=== PATIENT | female | born 1985 ===

== ENCOUNTER 2017-10-21 05:23 | Inpatient (IN) | payer BC ==
[2017-10-21] MEDS ORDERED: HYDROcodone/Acetaminophen 5/325 mg Tablet PO PRN ×2 (05:34)
[2017-10-21] MEDS ORDERED: Diphenoxylate HCl/Atropine Tablet PO PRN ×2 (05:34)
[2017-10-21] MEDS ORDERED: Docusate 100 MG CAP PO PRN (05:34)
[2017-10-21] MEDS ORDERED: NS / Oxytocin 40 units/1000ml 1,000 ML IV PRN (05:34)
[2017-10-21] MEDS ORDERED: Misoprostol 200 MCG TAB PR PRN (05:34)
[2017-10-21] MEDS ORDERED: Butorphanol Tartrate 1 MG/ML VIAL SLOW IVP PRN (05:34)
[2017-10-21] MEDS ORDERED: Lidocaine 1% (PF) 30 ML VIAL SC PRN (05:34)
[2017-10-21] MEDS ORDERED: Ondansetron HCl/PF 4 MG/2 ML Vial IVP PRN ×3 (05:34→16:10)
[2017-10-21] MEDS ORDERED: Promethazine HCl 25 MG/ML VIAL IM PRN ×2 (05:34→10:56)
[2017-10-21] MEDS ORDERED: Acetaminophen 500 MG TAB PO PRN (05:34)
[2017-10-21] MEDS ORDERED: NS w/ Oxytocin 10 units 500 ML IV SCH (05:34)
[2017-10-21] MEDS ORDERED: Ibuprofen 800 MG TAB PO PRN (05:34)
[2017-10-21] MEDS: Lactated Ringer's 1,000 ML IV SCH ×3 (06:05→11:22)
[2017-10-21 06:36] VITALS: BMI 45.9
[2017-10-21 06:38] LABS: Hemoglobin 10.7 g/dL (12.0-16.0); Mean Corpuscular HGB CONC 33.5 g/dL (32.0-36.0); Mean Corpuscular Hemoglobin 29.7 pg (27.0-31.0); Mean Corpuscular Volume 88.7 fL (78.0-98.0); Mean Platelet Volume 10.9 fL (7.4-10.4); Platelet Count 191 thou/uL (130-400); RBC Distribution Width 13.2 % (11.5-14.5); Red Blood Cell (RBC) Count 3.59 mill/uL (4.20-5.40); White Blood Cell (WBC) Count 9.4 thou/uL (4.8-10.8)
[2017-10-21 07:17] LABS: Syphilis Antibody Nonreactive (Nonreactive); Syphilis Antibody Index 0.03 S/CO (<1.00 Non-Reactive)
[2017-10-21 07:18] LABS: HBSAg Index 0.14 S/CO (0-0.99); Hep B Surf Ag Non-Reactive S/CO (NonReactive)
[2017-10-21] MEDS ORDERED: DISCONTINUE ALL PREVIOUS NARCOTICS FS SCH (09:45)
[2017-10-21] MEDS ORDERED: Bupivacaine 0.5% 20 ML, fentaNYL Citrate/PF 400 MCG in Sodium Chloride 0.9% 72 ML EPIDURAL SCH (09:45)
[2017-10-21] MEDS ORDERED: Acetaminophen 325 MG TAB PO PRN (10:56)
[2017-10-21] MEDS ORDERED: Eucerin (Mineral Oil/Petrolatum,White) 30 gm Jar TOP PRN (10:56)
[2017-10-21] MEDS ORDERED: ePHEDrine/0.9% NaCl/PF SYRINGE 50 mg/10 ml SLOW IVP PRN (10:56)
[2017-10-21] MEDS ORDERED: Naloxone HCl 0.4 mg/ml Vial IVP PRN ×2 (10:56)
[2017-10-21] MEDS ORDERED: Lactated Ringer's 500 ML IV PRN (10:56)
[2017-10-21] MEDS ORDERED: diphenhydrAMINE 50 MG/ML VIAL IVP PRN (10:56)
[2017-10-21] MEDS ORDERED: fentaNYL Citrate/PF 400 MCG, Bupivacaine 0.5% 20 ML in Sodium Chloride 0.9% 72 ML EPIDURAL SCH (11:00)
[2017-10-21] MEDS ORDERED: Communication Order-Pharmacy FS SCH (11:00)
[2017-10-21] MEDS ORDERED: Zolpidem Tartrate 5 MG TAB PO PRN (16:10)
[2017-10-21] MEDS ORDERED: Milk Of Magnesia 30 ML UDCUP PO PRN (16:10)
[2017-10-21] MEDS ORDERED: Acetaminophen/Codeine 30-300mg Tablet PO PRN (16:10)
[2017-10-21] MEDS ORDERED: Benzocaine/Menthol 20-0.5% 60 ML CAN TOP PRN (16:10)
[2017-10-21] MEDS ORDERED: Bisacodyl 10 MG SUPP PR PRN (16:10)
[2017-10-21] MEDS ORDERED: Adacel (T-DAP) 0.5 ML VIAL IM ONE (16:10)
[2017-10-21] MEDS ORDERED: Preparation H Ointment 28 GM TUBE PR PRN (16:10)
[2017-10-21] MEDS ORDERED: diphenhydrAMINE 25 MG CAP PO PRN (16:10)
[2017-10-21] MEDS ORDERED: Lanolin Ointment 7 GM TUBE TOP PRN (16:10)
[2017-10-21] MEDS ORDERED: NS / Oxytocin 40 units/1000ml 1,000 ML IV SCH (16:15)
[2017-10-21] MEDS: Ferrous Sulfate 325 MG TAB PO SCH (19:29)
[2017-10-21] MEDS: Ibuprofen 800 MG TAB PO SCH (19:38)
[2017-10-21] MEDS: Docusate Calcium (SURFAK) 240 MG CAP PO SCH (19:39)
[2017-10-21] MEDS: Acetaminophen/Codeine 30-300mg Tablet PO PRN (22:05)
[2017-10-22] MEDS: Acetaminophen/Codeine 30-300mg Tablet PO PRN ×3 (02:21→12:38)
[2017-10-22 05:08] LABS: Hemoglobin 10.2 g/dL (12.0-16.0); Mean Corpuscular HGB CONC 33.4 g/dL (32.0-36.0); Mean Corpuscular Hemoglobin 30.1 pg (27.0-31.0); Mean Platelet Volume 11.1 fL (7.4-10.4); Platelet Count 170 thou/uL (130-400); RBC Distribution Width 13.1 % (11.5-14.5); Red Blood Cell (RBC) Count 3.39 mill/uL (4.20-5.40); White Blood Cell (WBC) Count 12.7 thou/uL (4.8-10.8)
[2017-10-22] MEDS: Ibuprofen 800 MG TAB PO SCH ×2 (06:06→14:31)
[2017-10-22] MEDS: Ferrous Sulfate 325 MG TAB PO SCH ×2 (07:48→14:35)
[2017-10-22] MEDS: Docusate Calcium (SURFAK) 240 MG CAP PO SCH (08:09)
[2017-10-22] MEDS ORDERED: Prenatal Vitamin 1 TAB PO SCH (09:00)
[2017-10-22 17:41] VITALS: BP 148/87; TEMP 98
[2017-10-22] MEDS ORDERED: HYDROcodone/Acetaminophen 10/325 mg Tablet PO PRN (18:49)
== END 2017-10-22 19:35 | disposition home or self-care (01) | DRG 775 ==
LOC: L&D 05:23 → 3SW 18:48
PROVIDERS: ADMIT Obstetrics & Gynecology; ATTEND Obstetrics & Gynecology
PROC: 10907ZC Drainage of Amniotic Fluid, Therapeutic from Products of Conception, Via Natural or Artificial Opening (ICD-10-PCS; principal; 2017-10-21)
PROC: 10E0XZZ Delivery of Products of Conception, External Approach (ICD-10-PCS; 2017-10-21)
PROC: 3E033VJ Introduction of Other Hormone into Peripheral Vein, Percutaneous Approach (ICD-10-PCS; 2017-10-21)
DX: O99.344 Other mental disorders complicating childbirth (principal); Z3A.39 39 weeks gestation of pregnancy; Z37.0 Single live birth; F32.9 Major depressive disorder, single episode, unspecified; O69.81X0 Labor and delivery complicated by cord around neck, without compression, not applicable or unspecified
CPT/HCPCS: 36415; 85027; 86780; 86850; 86900; 86901; 87340; 90715; J3010; J3490; J7050